=== PATIENT | female | born 1990 | race Caucasian/White ===

== ENCOUNTER 2017-01-05 20:38 | Emergency (ER) | payer OTHER ==
[2017-01-05 20:59] VITALS: RESP 18
[2017-01-05] MEDS ORDERED: ONDANSETRON 4 MG/2 ML VIAL IVP STA (22:36)
[2017-01-05] MEDS ORDERED: MORPHINE SULFATE 10 MG/ML SYRINGE IV STA (22:36)
--- NOTE | 2017-01-05 22:39 | ED ---
General Adult HPI - General Chief complaint: Abdominal Pain Stated complaint: Kidney Stones Time Seen by Provider: 01/05/17 22:15 Source: patient, RN notes reviewed Mode of arrival: ambulatory Limitations: no limitations - History of Present Illness Initial comments: 27-year-old female presents for evaluation of bilateral flank pain, worse on the right. Patient has history of kidney stones. She has been passing several kidney stones over the past 24 hours. She also complains of generalized diffuse abdominal pain. Pain does radiate to her groin. She also complains of dysuria. Denies fever, states she's had some chills. She is also had nausea no vomiting. She states she's been having normal bowel movements. - Related Data Home Medications Medication Instructions Recorded Confirmed ALPRAZolam [Xanax] 2 mg PO BID PRN 01/05/17 01/05/17 Dextroamphetamine/Amphetamine 30 mg PO TID 01/05/17 01/05/17 [Adderall] Previous Rx's Medication Instructions Recorded Sulfamethox-Tmp 800-160Mg [Bactrim 1 tab PO Q12HR #28 tab 01/06/17 DS 800-160 mg] Allergies Allergy/AdvReac Type Severity Reaction Status Date / Time No Known Allergies Allergy Verified 01/05/17 21:54 Review of Systems ROS Statement: Those systems with pertinent positive or pertinent negative responses have been documented in the HPI. ROS Other: All systems not noted in ROS Statement are negative. Past Medical History Additional Past Medical History / Comment(s): kidney stone. narcolepsy History of Any Multi-Drug Resistant Organisms: None Reported Past Surgical History: Orthopedic Surgery Past Psychological History: No Psychological Hx Reported Smoking Status: Current every day smoker Past Alcohol Use History: None Reported Past Drug Use History: Marijuana General Exam Limitations: no limitations General appearance: alert, in no apparent distress Head exam: Present: atraumatic, normocephalic Eye exam: Present: normal appearance, PERRL ENT exam: Present: normal exam, mucous membranes moist Neck exam: Present: normal inspection. Absent: tenderness, meningismus Respiratory exam: Present: normal lung sounds bilaterally. Absent: respiratory distress Cardiovascular Exam: Present: regular rate, normal rhythm GI/Abdominal exam: Present: soft. Absent: distended, tenderness Extremities exam: Present: normal inspection, normal capillary refill. Absent: pedal edema Back exam: Present: normal inspection, full ROM, CVA tenderness (R), CVA tenderness (L) Neurological exam: Present: alert, oriented X3, CN II-XII intact. Absent: motor sensory deficit Psychiatric exam: Present: normal affect, normal mood Skin exam: Present: warm, dry, intact. Absent: cyanosis, diaphoretic Course Vital Signs 01/05/17 20:56 Temperature 97.0 F L Pulse Rate 94 Respiratory 18 Rate Blood Pressure 120/86 O2 Sat by Pulse 100 Oximetry Medical Decision Making - Medical Decision Making 27-year-old female presenting with bilateral flank pain and dysuria. Patient is afebrile well-appearing on examination. Patient does have history of kidney stones. She believes she may have passed a stone today. Urinalysis shows cloudy urine with large leukocyte esterase, 130 wbc's, rare bacteria and 2 RBCs. This consistent with urinary tract infection. White blood cell count shows 13.9 which is mildly elevated. X-ray shows no specific calcifications to indicate radio opaque stone. No obstruction or free air. Reevaluation patient is feeling much better. She will be started on antibiotics, urine culture is pending. - Lab Data Result diagrams: 01/05/17 23:23 01/05/17 23:23 Lab Results 01/05/17 01/05/17 01/05/17 Range/Units 23:10 23:10 23:23 WBC (3.8-10.6) k/uL RBC (3.80-5.40) m/uL Hgb (11.4-16.0) gm/dL Hct (34.0-46.0) % MCV (80.0-100.0) fL MCH (25.0-35.0) pg MCHC (31.0-37.0) g/dL RDW (11.5-15.5) % Plt Count (150-450) k/uL Neutrophils % % Lymphocytes % % Monocytes % % Eosinophils % % Basophils % % Neutrophils # (1.3-7.7) k/uL Lymphocytes # (1.0-4.8) k/uL Monocytes # (0-1.0) k/uL Eosinophils # (0-0.7) k/uL Basophils # (0-0.2) k/uL Sodium 140 (137-145) mmol/L Potassium 4.0 (3.5-5.1) mmol/L Chloride 106 (98-107) mmol/L Carbon Dioxide 27 (22-30) mmol/L Anion Gap 7 mmol/L BUN 8 (7-17) mg/dL Creatinine 0.70 (0.52-1.04) mg/dL Est GFR (MDRD) Af Amer >60 (>60 ml/min/1.73 sqM) Est GFR (MDRD) Non-Af >60 (>60 ml/min/1.73 sqM) Glucose 78 (74-99) mg/dL Calcium 9.6 (8.4-10.2) mg/dL Total Bilirubin 0.4 (0.2-1.3) mg/dL AST 19 (14-36) U/L ALT 27 (9-52) U/L Alkaline Phosphatase 73 (38-126) U/L Total Protein 7.4 (6.3-8.2) g/dL Albumin 4.3 (3.5-5.0) g/dL Amylase 47 (30-110) U/L Lipase 64 (23-300) U/L Urine Color Light Yellow Urine Appearance Cloudy H (Clear) Urine pH 6.0 (5.0-8.0) Ur Specific [place] 1.006 (1.001-1.035) Urine Protein 1+ H (Negative) Urine Glucose (UA) Negative (Negative) Urine Ketones Negative (Negative) Urine Blood Large H (Negative) Urine Nitrite Negative (Negative) Urine Bilirubin Negative (Negative) Urine Urobilinogen <2.0 (<2.0) mg/dL Ur Leukocyte Esterase Large H (Negative) Urine RBC 2 (0-5) /hpf Urine WBC 130 H (0-5) /hpf Ur Squamous Epith Cells 4 (0-4) /hpf Urine Bacteria Rare H (None) /hpf Urine Mucus Rare H (None) /hpf Urine HCG, Qual Not Detected (Not Detectd) 01/05/17 Range/Units 23:23 WBC 13.9 H (3.8-10.6) k/uL RBC 4.62 (3.80-5.40) m/uL Hgb 14.2 (11.4-16.0) gm/dL Hct 46.4 H (34.0-46.0) % MCV 100.5 H (80.0-100.0) fL MCH 30.7 (25.0-35.0) pg MCHC 30.6 L (31.0-37.0) g/dL RDW 13.6 (11.5-15.5) % Plt Count 239 (150-450) k/uL Neutrophils % 53 % Lymphocytes % 36 % Monocytes % 4 % Eosinophils % 5 % Basophils % 1 % Neutrophils # 7.3 (1.3-7.7) k/uL Lymphocytes # 5.0 H (1.0-4.8) k/uL Monocytes # 0.6 (0-1.0) k/uL Eosinophils # 0.7 (0-0.7) k/uL Basophils # 0.1 (0-0.2) k/uL Sodium (137-145) mmol/L Potassium (3.5-5.1) mmol/L Chloride (98-107) mmol/L Carbon Dioxide (22-30) mmol/L Anion Gap mmol/L BUN (7-17) mg/dL Creatinine (0.52-1.04) mg/dL Est GFR (MDRD) Af Amer (>60 ml/min/1.73 sqM) Est GFR (MDRD) Non-Af (>60 ml/min/1.73 sqM) Glucose (74-99) mg/dL Calcium (8.4-10.2) mg/dL Total Bilirubin (0.2-1.3) mg/dL AST (14-36) U/L ALT (9-52) U/L Alkaline Phosphatase (38-126) U/L Total Protein (6.3-8.2) g/dL Albumin (3.5-5.0) g/dL Amylase (30-110) U/L Lipase (23-300) U/L Urine Color Urine Appearance (Clear) Urine pH (5.0-8.0) Ur Specific [place] (1.001-1.035) Urine Protein (Negative) Urine Glucose (UA) (Negative) Urine Ketones (Negative) Urine Blood (Negative) Urine Nitrite (Negative) Urine Bilirubin (Negative) Urine Urobilinogen (<2.0) mg/dL Ur Leukocyte Esterase (Negative) Urine RBC (0-5) /hpf Urine WBC (0-5) /hpf Ur Squamous Epith Cells (0-4) /hpf Urine Bacteria (None) /hpf Urine Mucus (None) /hpf Urine HCG, Qual (Not Detectd) Disposition Clinical Impression: Pyelonephritis Disposition: HOME SELF-CARE Condition: Good Prescriptions: Sulfamethox-Tmp 800-160Mg [Bactrim DS 800-160 mg] 1 tab PO Q12HR #28 tab Referrals: None,Stated [Primary Care Provider] - 1-2 days Yobany Mcgill MD [STAFF PHYSICIAN] - 1-2 days Time of Disposition: 00:16
[2017-01-05 23:29] LABS: Appearance,Urine Cloudy (Clear); Bacteria,Urine Rare /hpf; Bilirubin,Urine Negative (Negative); Glucose,Urine (UA) Negative (Negative); Ketones,Urine Negative (Negative); Leukocyte Esterase,Urine Large (Negative); Mucus,Urine Rare /hpf; Nitrite,Urine Negative (Negative); Particle Count 3434; Protein,Urine 1+ (Negative); RBC,Urine 2 /hpf (0-5); Specific Gravity,Urine 1.006 (1.001-1.035); Squamous Epithelial Cell,Urine 4 /hpf (0-4); UA Billing (MACRO vs. MICRO) MICRO; Urobilinogen,Urine <2.0 mg/dL (<2.0); WBC,Urine 130 /hpf (0-5)
[2017-01-05 23:41] LABS: ALT 27 U/L (9-52); AST 19 U/L (14-36); Alkaline Phosphatase 73 U/L (38-126); Amylase 47 U/L (30-110); Anion Gap 7 mmol/L; Blood Urea Nitrogen 8 mg/dL (7-17); Calcium 9.6 mg/dL (8.4-10.2); Carbon Dioxide 27 mmol/L (22-30); Chloride 106 mmol/L (98-107); Glucose 78 mg/dL (74-99); Non-African American GFR(MDRD) >60 (>60 ml/min/1.73 sqM); Sodium 140 mmol/L (137-145); Total Bilirubin 0.4 mg/dL (0.2-1.3); Total Protein 7.4 g/dL (6.3-8.2)
[2017-01-05 23:51] LABS: Basophils # (A) 0.1 k/uL (0-0.2); Basophils % (A) 1 %; CH 32.1; CHCM 32.1; Eosinophils # (A) 0.7 k/uL (0-0.7); Eosinophils % (A) 5 %; HCT 46.4 % (34.0-46.0); HDW 2.13; HGB 14.2 gm/dL (11.4-16.0); Luc # (Auto) 0.13; Luc % (Auto) 1; Lymphocytes % (A) 36 %; MCH 30.7 pg (25.0-35.0); MCHC 30.6 g/dL (31.0-37.0); MCV 100.5 fL (80.0-100.0); Mean Platelet Volume 8.7; Monocytes # (A) 0.6 k/uL (0-1.0); Monocytes % (A) 4 %; Neutrophils # (A) 7.3 k/uL (1.3-7.7); Neutrophils % (A) 53 %; RBC 4.62 m/uL (3.80-5.40); RDW 13.6 % (11.5-15.5); WBC 13.9 k/uL (3.8-10.6); WBC (Perox) 13.45
--- NOTE | 2017-01-05 23:58 | XR ---
EXAM: XR Abdomen CLINICAL HISTORY: Reason: abdominal pain TECHNIQUE: Upright frontal views of the abdomen/pelvis. COMPARISON: No relevant prior studies available. FINDINGS: Gastrointestinal tract: Unremarkable. No dilation. Bones/joints: Unremarkable. IMPRESSION: Normal abdominal x-ray.
[2017-01-06 00:45] VITALS: BP 115/73; PULSE 75; TEMP 97.7
== END 2017-01-06 00:45 | disposition home or self-care (01) ==
LOC: EC 20:38
DX: N12 Tubulo-interstitial nephritis, not specified as acute or chronic (principal); F17.200 Nicotine dependence, unspecified, uncomplicated; Z87.442 Personal history of urinary calculi; Z79.899 Other long term (current) drug therapy
CPT/HCPCS: 36415; 80053; 82150; 83690; 85025; 81001; 81025; 87086; 74000; 99284; 96374; 96375; J2270; J2405

== ENCOUNTER 2017-09-14 00:44 | Emergency (ER) | payer OTHER ==
[2017-09-14 03:26] LABS: Basophils % (A) 0 %; Eosinophils # (A) 0.5 k/uL (0-0.7); Eosinophils % (A) 4 %; HCT 39.7 % (34.0-46.0); HGB 13.5 gm/dL (11.4-16.0); Lymphocytes # (A) 4.4 k/uL (1.0-4.8); Lymphocytes % (A) 37 %; MCH 32.5 pg (25.0-35.0); MCV 95.7 fL (80.0-100.0); Mean Platelet Volume 7.6; Monocytes # (A) 0.5 k/uL (0-1.0); Monocytes % (A) 4 %; Neutrophils # (A) 6.1 k/uL (1.3-7.7); Neutrophils % (A) 52 %; Platelet Count 173 k/uL (150-450); RBC 4.15 m/uL (3.80-5.40); RDW 12.4 % (11.5-15.5); WBC 11.6 k/uL (3.8-10.6)
[2017-09-14 03:30] LABS: Mucus,Urine Rare /hpf; RBC,Urine 2 /hpf (0-5); Squamous Epithelial Cell,Urine 11 /hpf (0-4); WBC,Urine 5 /hpf (0-5)
[2017-09-14 03:31] LABS: Appearance,Urine Cloudy (Clear); Bilirubin,Urine Negative (Negative); Blood,Urine Negative (Negative); Color,Urine Yellow; Glucose,Urine (UA) Negative (Negative); Ketones,Urine Negative (Negative); Leukocyte Esterase,Urine Small (Negative); Nitrite,Urine Negative (Negative); Protein,Urine Negative (Negative); Specific Gravity,Urine 1.011 (1.001-1.035); Urobilinogen,Urine <2.0 mg/dL (<2.0)
[2017-09-14 03:33] LABS: ALT 25 U/L (9-52); AST 16 U/L (14-36); Albumin 3.8 g/dL (3.5-5.0); Alkaline Phosphatase 50 U/L (38-126); Anion Gap 6 mmol/L; Blood Urea Nitrogen 12 mg/dL (7-17); Carbon Dioxide 24 mmol/L (22-30); Chloride 109 mmol/L (98-107); Glucose 102 mg/dL (74-99); Sodium 139 mmol/L (137-145); Total Bilirubin 0.2 mg/dL (0.2-1.3); Total Protein 6.3 g/dL (6.3-8.2)
[2017-09-14 03:36] LABS: Amphetamine Screen,Urine Not Detected (NotDetected); Barbiturate Screen,Urine Not Detected (NotDetected); Benzodiazepines Screen,Urine Not Detected (NotDetected); Cocaine Screen,Urine Not Detected (NotDetected); Methadone Screen, Urine Not Detected (NotDetected); Opiate Screen,Urine Not Detected (NotDetected); Oxycodone Screen, Urine Not Detected (NotDetected); Phencyclidine Screen,Urine Not Detected (NotDetected); Tricyclic Antidepressant,Urine Not Detected (NotDetected); Urn Cannabinoid Scrn Detected (NotDetected)
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
[2017-09-14] MEDS ORDERED: LORazepam 1 MG TAB PO STA (12:54)
[2017-09-14] MEDS ORDERED: NICOTINE 21MG/24HR PATCH TRANSDERM STA (12:54)
[2017-09-14 14:50] VITALS: BP 122/68; PULSE 86; RESP 18; TEMP 97.3
== END 2017-09-14 14:48 | disposition other institution (70) ==
LOC: EC 00:44
DX: R45.6 Violent behavior (principal); Z72.89 Other problems related to lifestyle; G47.419 Narcolepsy without cataplexy; F17.200 Nicotine dependence, unspecified, uncomplicated; Z79.899 Other long term (current) drug therapy
CPT/HCPCS: 99285; 36415; 80053; 85025; 81001; 80306; S4990

== ENCOUNTER → 2017-09-25 | Outpatient (CLI) | payer OTHER ==
--- NOTE | 2017-09-25 17:10 | CONS ---
CONSULTATION DATE OF SERVICE: 09/25/2017 27-year-old lady has been evaluated in the sleep center for narcolepsy. Patient has been diagnosed with narcolepsy in 2011. At that time multiple sleep latency test showed extremely short sleep latency only 0.8 minutes with four sleep onset REM periods. Positive history of cataplexy. Apnea-hypopnea index reading at that time was 5.6. After that patient had several attempts to be treated with CPAP but never have been able to tolerate CPAP mask. For the long period of time she is on treatment with Adderall. Treatment with modafinil in the past was not successful. Patient did not tolerate modafinil. According to patient, for the recent period of time, she was on treatment with Adderall up to 90 mg a day, 30 mg 3 times a day and only with this regimen is she able to keep concentration and alertness during the day. She is also on treatment with Xanax for anxiety and difficulties with falling asleep at night. Her sleep schedule from 3:00 to 5:00 a.m. she did not indicate exact time when she is getting out of bed. It is different. No problem with falling asleep according to patient. She usually takes naps in early and late afternoon up to 3 times a day. She wakes up from sleep at night up to 4 times. Positive history of sleep talking, hypnagogic hallucinations. Positive history of cataplexy during the day. Previous treatment with SSRIs was not very successful. The patient did not feel any improvement. Previously she was discussed option for treatment with Xyrem, but she denied this option. She does not want to consider that and thinks that she would not be able to take medication several times at night. During the day she has tiredness, difficulties to pay attention, falling asleep during the day, worried about her sleep, has problems with memory, concentration, anxiety. [place] Sleepiness Scale today is 18. PAST MEDICAL HISTORY: Positive for ADHD, anxiety. MEDICATION: Adderall, Xanax. SOCIAL HISTORY: Positive for smoking 1 pack for about 16 years. Alcohol consumption none at the present time. FAMILY HISTORY: Positive for asthma, lung problems, snoring, cancer, insomnia, ulcers, during the sleep, restless legs. REVIEW OF SYSTEMS: Awakenings from sleep, significant sleepiness during the day, episodes of anxiety. PHYSICAL EXAMINATION: GENERAL During physical exam, a 27-year-old lady without distress. VITAL SIGNS BP 102/66, HR 100, RR 16, height 63-1/2, weight 190, body mass index 33.1, temperature 98.6, oxygen saturation at room air 100%. HEENT PERRLA, EOMI. Evaluation of oropharynx showed extremely low position of soft palate. Restriction of nasal breathing bilaterally. NECK Supple, no JVD. Thyroid is not palpable. LUNGS Clear to percussion and to auscultation. Good air exchange. No wheezing or rhonchi. HEART S1, S2 regular. No murmurs, gallops, or rubs. ABDOMEN Obese. Soft and nontender. Bowel sounds are present. No organomegaly appreciated. EXTREMITIES No clubbing or cyanosis. DRIVE THRU ORDER TAKER Awake, alert, and oriented X3. Cranial nerves 2 to 7 intact. There is no fasciculation or atrophy. noted. No focal deficits observed. IMPRESSION: 1. 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 2. Very mild obstructive sleep apnea. Apnea-hypopnea index 5.6 by results of sleep study in 2012. Patient was not able to tolerate any CPAP therapy in the past. 3. Mild obesity, body mass index 33.1. 4. Attention deficit hyperactivity disorder. 5. Chronic anxiety disorder. PLAN: 1. Patient will continue treatment with Adderall. 2. Excessive daytime sleepiness related to narcolepsy confirmed by multiple sleep latency test. I gave her prescription for 30 mg tablets 2 times a day. According to patient, lower dose than 30 mg does not change her alertness. She is aware about the possibility of addiction to medication. 3. Prescription for Adderall for 1 month. 4. Prescription for Xanax 2 mg 2 times a day for 1 month without refills. 5. Losing weight. 6. Sleep hygiene with regular time in bed for at least 8 hours. 7. No driving if feeling sleepiness. 8. We discussed with the patient possibility to treat obstructive sleep apnea. She agreed to proceed with the ear, nose, and throat consultation for possibility of surgical treatment including surgery on the nose. Sincerely, Phillip Sanchez MD, PhD, FAASM Diplomat of [employer] [employer] [employer] Operator of [facility] [place] MMODL / IJN: [id number] /
== END | disposition home or self-care (01) ==
LOC: SLEEP 14:59
PROVIDERS: ATTEND Internal Medicine
DX: G47.411 Narcolepsy with cataplexy (principal); G47.33 Obstructive sleep apnea (adult) (pediatric); E66.9 Obesity, unspecified; F90.9 Attention-deficit hyperactivity disorder, unspecified type; F41.8 Other specified anxiety disorders; Z87.891 Personal history of nicotine dependence; Z68.33 Body mass index [BMI] 33.0-33.9, adult; Z79.899 Other long term (current) drug therapy
CPT/HCPCS: 99211

== ENCOUNTER → 2017-10-30 | Outpatient (CLI) | payer OTHER | END | disposition home or self-care (01) | LOC: SLEEP 15:10 | PROVIDERS: ATTEND Internal Medicine | DX: Z53.9 Procedure and treatment not carried out, unspecified reason (principal) ==

== ENCOUNTER → 2017-11-11 | Outpatient (CLI) | payer OTHER ==
--- NOTE | 2017-11-11 12:10 | US ---
EXAMINATION TYPE: US abd limited kidneys/bladder DATE OF EXAM: 11/11/2017 COMPARISON: NONE CLINICAL HISTORY: R10.84 Generalized abdominal pain N20.0 Calculus. Abd pain, history of stones per patient EXAM MEASUREMENTS: Liver Length: 15.0 cm Gallbladder Wall: 0.1 cm CBD: 0.4 cm Right Kidney: 11.3 x 4.0 x 5.1 cm Left Kidney: 11.9 x 5.5 x 4.2 cm Pancreas: Tail obscured by overlying bowel gas, visualized portions wnl Liver: wnl Gallbladder: wnl CBD: wnl Right Kidney: No hydronephrosis or masses seen Left Kidney: No hydronephrosis or masses seen Bladder: wnl Bilateral Jets Seen Yes Kidneys show normal cortical medullary differentiation, there is no evident calcification. There is no ascites. IMPRESSION: No significant abnormalities evident.
== END | disposition home or self-care (01) ==
LOC: RADUSWWP 09:05
PROVIDERS: ATTEND Family Medicine
DX: N20.0 Calculus of kidney (principal); R10.84 Generalized abdominal pain
CPT/HCPCS: 76705; 76770

== ENCOUNTER → 2017-12-03 | Outpatient (CLI) | payer OTHER ==
--- NOTE | 2017-12-03 17:35 | MR ---
EXAMINATION TYPE: MR brain wo/w con DATE OF EXAM: 12/03/2017 COMPARISON: HISTORY: Narcolepsy/Headache/Dizziness TECHNIQUE: Multiplanar, multisequence images of the brain and brainstem is performed without and with IV contras t, utilizing 9 mL intravenous Gadavist . FINDINGS: Diffusion weighted images demonstrate no evidence of a recent infarct or other diffusion ab normality. There is no extra-axial fluid collection or significant white matter signal abnormality. The ventricular system and cisternal spaces are normal in size and appearance. The brain volume is age appropriate. Midline structures demonstrate normal morphology. The craniocervical junction appears within normal limits. Post contrast images demonstrate no abnormal enhancement. The dural venous sinuses appear pa tent. The visualized sinuses are remarkable for extensive inflammatory change in the right maxillary sinus greater than left and ethmoid air cells, and the globes are intact. IMPRESSION: Sinus disease. No significant brain abnormality is evident
== END ==
LOC: RADMRIMAIN 14:14
PROVIDERS: ATTEND Family Medicine
DX: R55 Syncope and collapse (principal); R51 Headache
CPT/HCPCS: 70553; A9581